=== PATIENT | male | born 1980 | race American Indian/Alaskan Native ===

== ENCOUNTER 2021-03-13 11:15 | Emergency (ER) | payer SELFPAY ==
--- NOTE | 2021-03-13 11:26 | Emergency Department Report ---
ED Back Pain/Injury HPI - General Chief Complaint: Back Pain/Injury Stated Complaint: BACK PAIN X 2 DAYS. NO INJURY Time Seen by Provider: 03/13/21 11:26 Source: patient, EMS Limitations: No Limitations - History of Present Illness Initial Comments: Patient presents by EMS secondary to back pain. He had abrupt onset of back pain on Saturday. He states that it was more subacute to acute. He states that the pain was there Saturday afternoon. He tried to lay around all day Saturday. He does not remember hurting himself at work. He does do some lifting, but is not heavy lifting. He did not fall. The pain is in the right flank area and radiates to the right abdomen. It is sharp. He states that it waxes and wanes and almost seems to be more like muscle spasm. He states that when he twists or turns a certain way, the pain will "catch him." He states that he will oc casionally have some sharp stabbing pain that then resolves spontaneously as well. Patient came in for evaluation treatment due to the pain. He has not taken anything for pain as of yet. Is never had pain like this before. - Related Data Previous Rx's Medication Instructions Recorded Last Taken Type Ibuprofen [Motrin] 800 mg PO Q8HR PRN #30 tablet 03/13/21 Unknown Rx Metaxalone [Skelaxin] 800 mg PO TID #9 tablet 03/13/21 Unknown Rx Allergies Allergy/AdvReac Type Severity Reaction Status Date / Time No Known Allergies Allergy Unverified 03/13/21 11:27 ED Review of Systems ROS: Stated complaint: BACK PAIN X 2 DAYS. NO INJURY Other details as noted in HPI Comment: All other systems reviewed and negative Constitutional: denies: fever Eyes: denies: vision change ENT: denies: throat pain Respiratory: denies: cough Cardiovascular: denies: chest pain Gastrointestinal: denies: abdominal pain Genitourinary: denies: urgency Musculoskeletal: as per HPI Skin: denies: rash Neurological: denies: headache Hematological/Lymphatic: denies: easy bruising ED Past Medical Hx - Past Medical History Previous Medical History?: No - Surgical History Past Surgical History?: No - Family History Family history: no significant - Medications Home Medications: Home Medications Medication Instructions Recorded Confirmed Last Taken Type Ibuprofen [Motrin] 800 mg PO Q8HR PRN #30 tablet 03/13/21 Unknown Rx Metaxalone [Skelaxin] 800 mg PO TID #9 tablet 03/13/21 Unknown Rx ED Physical Exam - General Limitations: No Limitations, Other (Pulse ox noted and normal) General appearance: alert, in no apparent distress - Head Head exam: Present: atraumatic, normocephalic - Eye Eye exam: Present: normal appearance, EOMI. Absent: scleral icterus - ENT ENT exam: Present: normal orophraynx, normal external ear exam - Neck Neck exam: Present: normal inspection. Absent: meningismus - Respiratory Respiratory exam: Present: normal lung sounds bilaterally. Absent: respiratory distress - Cardiovascular Cardiovascular Exam: Present: normal rhythm, bradycardia - GI/Abdominal GI/Abdominal exam: Present: soft. Absent: distended, tenderness - Extremities Exam Extremities exam: Present: normal capillary refill - Back Exam Back exam: Present: CVA tenderness (R) (Mild), paraspinal tenderness (Right lumbar). Absent: CVA tenderness (L), vertebral tenderness - Neurological Exam Neurological exam: Present: alert, oriented X3, CN II-XII intact, normal gait, reflexes normal. Absent: motor sensory deficit - Psychiatric Psychiatric exam: Present: normal affect, normal mood - Skin Skin exam: Present: warm, dry ED Course Vital Signs 03/13/21 03/13/21 11:17 12:40 Temperature 98.3 F Pulse Rate 48 L 60 Respiratory 18 16 Rate Blood Pressure 139/89 133/84 [Left] O2 Sat by Pulse 100 100 Oximetry - Reevaluation(s) Reevaluation #1: 03/13/21 11:26 EMS was met upon arrival. Labs and analgesics were ordered. Old records reviewed. Reevaluation #2: 03/13/21 14:21 Labs are noted. Patient is here with flank pain. Etiology for this is not known. ED Medical Decision Making - Lab Data Result diagrams: 03/13/21 11:45 03/13/21 11:45 - Medical Decision Making Patient presented with flank pain that was nontraumatic. He seems to have muscle spasm associated with this. There is no hematuria suggestive of stone. He has no evidence of pyelonephritis or kidney infection. There is no abdominal tenderness or tenderness in McBurney's point that was just appendicitis or other pathology. There is no pulsatile mass suggestive of AAA. He has no neurologic symptom or deficit no suggest cord injury or cauda equina. Critical Care Time: No Critical care attestation.: If time is entered above; I have spent that time in minutes in the direct care of this critically ill patient, excluding procedure time. ED Disposition Clinical Impression: Acute right flank pain, Muscle spasm Disposition: HOME / SELF CARE / HOMELESS Is pt being admited?: No Condition: Stable Instructions: Muscle Cramps and Spasms, [id number] Additional Instructions: Limit lifting. Apply ice or heat. Drink plenty of water. Return for problems. Follow-up with your regular doctor for recheck. Do not drive while taking muscle relaxants. Prescriptions: Ibuprofen [Motrin] 800 mg PO Q8HR PRN #30 tablet PRN Reason: Pain, Moderate (4-6) Metaxalone [Skelaxin] 800 mg PO TID #9 tablet Referrals: KAREN LEWIS MD [Primary Care Provider] - 3-5 Days REBEKAH OLIVER MD [Staff Physician] - 3-5 Days
[2021-03-13] MEDS ORDERED: diazePAM 5 MG TAB PO ONE (11:27)
[2021-03-13] MEDS ORDERED: IBUPROFEN 800 MG TAB PO ONE (11:27)
[2021-03-13 12:16] LABS: Hematocrit 42.1 % (35.5-45.6); Hemoglobin 13.8 gm/dl (11.8-15.2); Mean Corpuscular HGB Conc 33 % (32-34); Mean Corpuscular Volume 94 fl (84-94); Platelet Count 234 K/mm3 (140-440); Red Blood Count 4.51 M/mm3 (3.65-5.03); Red Cell Distribution Width 14.3 % (13.2-15.2)
[2021-03-13 12:31] LABS: BUN/Creatinine Ratio 9; Blood Urea Nitrogen 9 mg/dL (9-20); Calcium 9.5 mg/dL (8.4-10.2); Hemolysis Index 5
[2021-03-13 12:48] VITALS: BP 133/84
[2021-03-13 13:43] LABS: Bilirubin,Urine NEG (Negative); Blood,Urine SM (Negative); Color,Urine Amber (Yellow); RBC,Urine < 1.0 /HPF (0.0-6.0)
[2021-03-13 14:13] LABS: WBC,Urine < 1.0 /HPF (0.0-6.0)
== END 2021-03-13 15:10 | disposition home or self-care (01) ==
LOC: ED 11:15
DX: R10.9 Unspecified abdominal pain (principal); M62.838 Other muscle spasm
CPT/HCPCS: 36415; 80048; 81001; 85027; 99284

== ENCOUNTER 2021-04-08 12:57 | Emergency (ER) | payer SELFPAY ==
[2021-04-08 13:10] VITALS: BP 104/73
--- NOTE | 2021-04-08 14:14 | XRay Report ---
RIGHT RIBS 6 VIEWS INDICATION / CLINICAL INFORMATION: PAIN. COMPARISON: None available. FINDINGS: RIBS: No displaced fractures of the right lateral eighth through 10th ribs. LUNGS: No acute findings. No pneumothorax. Signer Name: Meek Fay DO Signed: 04/08/2021 2:10 PM Workstation Name: [id number]
--- NOTE | 2021-04-08 14:26 | Emergency Department Report ---
ED General Adult HPI - General Chief complaint: Pain General Stated complaint: RT SIDE PAIN Time Seen by Provider: 04/08/21 13:15 Source: patient Mode of arrival: Ambulatory Limitations: No Limitations - History of Present Illness Initial comments: Right side pain that he was treated for about a month ago but has returned -: Gradual, days(s) Location: chest Radiation: non-radiation Severity scale (0 -10): 5 Quality: aching Consistency: constant Improves with: none Worsens with: movement Associated Symptoms: denies other symptoms - Related Data Previous Rx's Medication Instructions Recorded Last Taken Type Ibuprofen [Motrin] 800 mg PO Q8HR PRN #30 tablet 03/13/21 Unknown Rx Metaxalone [Skelaxin] 800 mg PO TID #9 tablet 03/13/21 Unknown Rx Allergies Allergy/AdvReac Type Severity Reaction Status Date / Time No Known Allergies Allergy Unverified 03/13/21 11:27 ED Review of Systems ROS: Stated complaint: RT SIDE PAIN Other details as noted in HPI Constitutional: denies: chills, fever Eyes: denies: eye pain, eye discharge, vision change ENT: denies: ear pain, throat pain Respiratory: denies: cough, shortness of breath, wheezing Cardiovascular: denies: chest pain, palpitations Endocrine: no symptoms reported Gastrointestinal: denies: abdominal pain, nausea, diarrhea Genitourinary: denies: urgency, dysuria Musculoskeletal: denies: back pain, joint swelling, arthralgia Skin: denies: rash, lesions Neurological: denies: headache, weakness, paresthesias Psychiatric: denies: anxiety, depression Hematological/Lymphatic: denies: easy bleeding, easy bruising ED Past Medical Hx - Past Medical History Previous Medical History?: No Hx Hypertension: No - Social History Smoking Status: Current Every Day Smoker Substance Use Type: Alcohol - Medications Home Medications: Home Medications Medication Instructions Recorded Confirmed Last Taken Type Ibuprofen [Motrin] 800 mg PO Q8HR PRN #30 tablet 03/13/21 Unknown Rx Metaxalone [Skelaxin] 800 mg PO TID #9 tablet 03/13/21 Unknown Rx ED Physical Exam - General Limitations: No Limitations General appearance: alert, in no apparent distress - Head Head exam: Present: atraumatic, normocephalic - Eye Eye exam: Present: normal appearance - ENT ENT exam: Present: mucous membranes moist - Neck Neck exam: Present: normal inspection - Respiratory Respiratory exam: Present: normal lung sounds bilaterally, chest wall tende rness. Absent: respiratory distress - Cardiovascular Cardiovascular Exam: Present: regular rate, normal rhythm. Absent: systolic murmur, diastolic murmur, rubs, gallop - GI/Abdominal GI/Abdominal exam: Present: soft, normal bowel sounds - Rectal Rectal exam: Present: deferred - Extremities Exam Extremities exam: Present: normal inspection - Back Exam Back exam: Present: normal inspection - Neurological Exam Neurological exam: Present: alert, oriented X3 - Psychiatric Psychiatric exam: Present: normal affect, normal mood - Skin Skin exam: Present: warm, dry, intact, normal color. Absent: rash ED Course Vital Signs 04/08/21 13:05 Temperature 98.8 F Pulse Rate 76 Respiratory 18 Rate Blood Pressure 104/73 O2 Sat by Pulse 99 Oximetry - Reevaluation(s) Reevaluation #1: 04/08/21 14:25 X RAY SHWOED FRACTURE TIG 8010 RIBS, NON ISPLACED NO PNEUMO Critical care attestation.: If time is entered above; I have spent that time in minutes in the direct care of this critically ill patient, excluding procedure time. ED Disposition Clinical Impression: Ribs, multiple fractures Disposition: 01 HOME / SELF CARE / HOMELESS Is pt being admited?: No Does the pt Need Aspirin: No Condition: Stable Instructions: Rib Fracture, [id number]
== END 2021-04-08 14:48 | disposition home or self-care (01) ==
LOC: ED 12:57
DX: S22.41XA Multiple fractures of ribs, right side, initial encounter for closed fracture (principal); F17.200 Nicotine dependence, unspecified, uncomplicated; X58.XXXA Exposure to other specified factors, initial encounter; Y93.89 Activity, other specified; Y92.89 Other specified places as the place of occurrence of the external cause; Y99.8 Other external cause status
CPT/HCPCS: 99283